=== PATIENT | female | born 1990 | race Caucasian/White ===

== ENCOUNTER 2018-08-10 13:53 | Emergency (ER) | payer MEDICARE, MEDICAID ==
[~2018-08-10] VITALS: Ht 157.5 cm; Wt 54.0 kg
[~2018-08-10 13:53] MED LIST: DIVA-76 PO; HYDR-3965 PO; OMEP40CA37 PO; ONDA4TAB12 PO
[2018-08-10 14:01] VITALS: BP 113/72
[2018-08-10] MEDS ORDERED: divalproex sodium 500mg tablet.DR PO ONE (14:15)
[2018-08-10] MEDS ORDERED: levetiracetam inj 1,500 MG in normal saline 100ml IV soln 85 ML IV ONE (14:15)
[2018-08-10] MEDS ORDERED: normal saline 1000ml 1,000 ML IV ONE (14:20)
== END 2018-08-10 15:23 | disposition home or self-care (01) ==
LOC: ER 13:54
DX: R56.9 Unspecified convulsions (principal); Z90.49 Acquired absence of other specified parts of digestive tract; Z79.899 Other long term (current) drug therapy
CPT/HCPCS: 96365; 99283; J1953; J7030

== ENCOUNTER 2022-02-16 10:00 | Emergency (ER) | payer MEDICARE, MEDICAID ==
[~2022-02-16] VITALS: Ht 152.4 cm; Wt 81.8 kg
[~2022-02-16 10:00] MED LIST changes: +OMEP40CA21 PO; -OMEP40CA37 PO
[2022-02-16] MEDS ORDERED: LIDO20SO24 PO (10:22)
[2022-02-16 10:30] VITALS: BP 122/91
== END 2022-02-16 10:50 | disposition home or self-care (01) ==
LOC: ER 10:01
DX: J02.9 Acute pharyngitis, unspecified (principal); R11.10 Vomiting, unspecified; Z90.49 Acquired absence of other specified parts of digestive tract; Z79.899 Other long term (current) drug therapy
CPT/HCPCS: 99282

== ENCOUNTER 2022-06-21 19:46 | Emergency (ER) | payer MEDICAID, MEDICARE ==
[~2022-06-21] VITALS: Ht 152.4 cm; Wt 81.8 kg
[~2022-06-21 19:46] MED LIST changes: +LIDO20SO24 PO
[2022-06-21 19:54] VITALS: BP 119/86
[2022-06-21 22:14] LABS: BASOPHILS # (AUTO) 0.2 X10'3 (0-0.2); BASOPHILS % (AUTO) 1.8 % (0-1); EOSINOPHILS # (AUTO) 0.1 X10'3 (0-0.9); EOSINOPHILS % (AUTO) 0.6 % (0-6); HEMATOCRIT 38.8 % (35.0-45.0); HEMOGLOBIN 13.5 g/dl (12.0-16.0); LYMPHOCYTES # (AUTO) 1.7 X10'3 (1.1-4.8); LYMPHOCYTES % (AUTO) 18.7 % (21-51); MEAN CORPUSCULAR HEMOGLOBIN 31.5 PG (27.0-31.0); MEAN CORPUSCULAR HGB CONC 34.8 g/dL (33.0-36.5); MEAN CORPUSCULAR VOLUME 90.5 FL (78-98); MEAN PLATELET VOLUME 10.1 FL (7.4-10.4); MONOCYTES # (AUTO) 0.7 X10'3 (0-0.9); MONOCYTES % (AUTO) 7.8 % (2-12); NEUTROPHILS # (AUTO) 6.5 X10'3 (1.8-7.7); NEUTROPHILS % (AUTO) 71.1 % (42-75); PLATELET COUNT 170 X10'3 (140-440); RED BLOOD COUNT 4.29 X10'6 (4.20-5.60); RED CELL DISTRIBUTION WIDTH 12.8 % (11.5-14.5); WHITE BLOOD COUNT 9.2 X10'3 (4.5-11.0)
[2022-06-21 22:23] LABS: ALANINE AMINOTRANSFERASE 14 U/L (12-78); ALBUMIN 3.6 G/DL (3.4-5.0); ALBUMIN/GLOBULIN RATIO 0.9 (1.1-1.5); ALKALINE PHOSPHATASE 67 IU/L (46-116); ANION GAP 8 (8-16); ASPARTATE AMINO TRANSFERASE 16 U/L (10-37); BILIRUBIN,TOTAL 0.3 MG/DL (0.1-1.0); BLOOD UREA NITROGEN 10 MG/DL (7-18); BUN/CREATININE RATIO 14.1 (6.6-38.0); CALCIUM 8.9 MG/DL (8.5-10.1); CHLORIDE 103 MMOL/L (99-107); CREATININE 0.71 MG/DL (0.40-0.90); GLUCOSE 83 MG/DL (70-104); POTASSIUM 3.7 MMOL/L (3.5-5.1); SODIUM 138 MMOL/L (135-145); TOTAL CARBON DIOXIDE 26.9 MMOL/L (24-32); TOTAL PROTEIN 7.4 G/DL (6.4-8.2); eGFR > 90 ML/MIN
[2022-06-21] MEDS ORDERED: CEPH500C82 PO (22:41)
[2022-06-21] MEDS ORDERED: SULF1TAB49 PO (22:41)
[2022-06-21] MEDS ORDERED: cephalexin 500mg capsule PO ONE (22:50)
[2022-06-21] MEDS ORDERED: sulfamethoxazole/trimethoprim DS (800/160mg) tablet PO ONE (22:50)
== END 2022-06-21 23:11 | disposition home or self-care (01) ==
LOC: ER 19:46
DX: I89.1 Lymphangitis (principal); M79.601 Pain in right arm; Z86.69 Personal history of other diseases of the nervous system and sense organs; Z90.89 Acquired absence of other organs; Z72.89 Other problems related to lifestyle; Z79.899 Other long term (current) drug therapy
CPT/HCPCS: 36415; 80053; 83605; 84145; 85025; 99283

== ENCOUNTER 2022-07-22 19:47 | Emergency (ER) | payer MEDICAID ==
[~2022-07-22] VITALS: Ht 152.4 cm; Wt 81.8 kg
[2022-07-22 19:57] VITALS: BP 120/80
[2022-07-22] MEDS ORDERED: ibuprofen tablet 400 MG TABLET PO ONE (20:10)
--- NOTE | 2022-07-22 20:17 | NUR ---
po med given
== END 2022-07-22 20:44 | disposition home or self-care (01) ==
LOC: ER 19:48
DX: S90.01XA Contusion of right ankle, initial encounter (principal); X50.1XXA Overexertion from prolonged static or awkward postures, initial encounter; Y93.89 Activity, other specified; Y92.89 Other specified places as the place of occurrence of the external cause; Y99.8 Other external cause status
CPT/HCPCS: 73610; 99283; L4360

== ENCOUNTER 2025-08-06 12:04 | Inpatient (IN) | payer MEDICAID ==
[~2025-08-06] VITALS: Ht 152.4 cm; Wt 91.7 kg
[~2025-08-06 12:04] MED LIST changes: +DIVA-134 PO; -DIVA-76 PO; +LIDO15SO9 PO; -LIDO20SO24 PO; +ONDA-243 PO; -ONDA4TAB12 PO
--- NOTE | 2025-08-06 12:35 | ELECTROCARDIOGRAPH REPORT ---
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 Nick Guadarrama Measurements Intervals [place] Rate: 109 P: 48 VT: 139 QRS: 84 QRSD: 88 T: 2 QT: 328 QTc: 442 Interpretive Statements Sinus tachycardia Borderline T abnormalities, anterior leads Electronically Signed On 08-09-2025 9:40:[address] Nick Guadarrama Please click the below link to view image of tracing.
--- NOTE | 2025-08-06 13:06 | RADIOLOGY REPORT ---
EXAM: DI CHEST,SINGLE VIEW HISTORY: COUGH, SOB TECHNIQUE: 1 view of the chest COMPARISON: None FINDINGS/IMPRESSION: LUNGS: Hazy alveolar opacity in the right lung base. Peribronchial thickening. Peripheral interstitial edema. Low lung volumes, which cause crowding of the bronchovascular markings. MEDIASTINUM: Unremarkable. BONES: No acute osseous abnormality. OTHER: None.
[2025-08-06] MEDS: ipratropium/albuterol 3ml nebule NEB ONE (13:14)
[2025-08-06 13:17] VITALS: PULSE 100; RESP 20; O2SAT 99
[2025-08-06 13:24] VITALS: PULSE 110; RESP 20; O2SAT 99
[2025-08-06 13:30] LABS: INFLUENZA TYPE A ANTIGEN RAPID NEGATIVE (Negative); INFLUENZA TYPE B ANTIGEN RAPID NEGATIVE (Negative)
[2025-08-06] MEDS: CefTRIAXone/D5W-Rocephin 1gm 50 ML IV ONE (13:31)
[2025-08-06 13:42] LABS: MEAN PLATELET VOLUME 10.0 FL (7.4-10.4); RED CELL DISTRIBUTION WIDTH 13.9 % (11.5-14.5)
--- NOTE | 2025-08-06 13:46 | Physician Documentation ---
History of Present Illness ~ Chief Complaint: Flu Symptoms Stated Complaint: PNEUMONIA Time Seen by MD: 12:50 OK to notify your PCP?: Yes HPI A 35 years old female who was brought in by his fiance for the acute shortness of breath and flu like symptoms since last Saturday with the PMH of seizures on Dapakote, s/p appendectomy. She was breathlessness and her fiance who is living with the patient endorsed most of the patient's history. Pt was getting high grade fever around 101'F with chills but not associated with the special time and patten of the occurrence. She started her cough with light intensity but progressed and worsen with the greenish sputum and denied for any blood in there. She was not diagnosed with the asthma or COPD before and dose not need to use oxygen and inhalers at home. She progressed her disease course with the whole body aching and GI symptoms with the Nausea, vomiting, and loose bowel movement. She denied for any sick contact before but her sisters got the similar symptoms after she started the symptoms. She also reported for the loss of She was never immunized with Covid vaccine and contracted with Covid infection before. She denied for any recent malignancy histories and its recent treatment, no recent long distance history. Medication Reconciliation Allergies: Coded Allergies: No Known Allergies (Unverified , 08/06/25) Scheduled Divalproex Sodium DR* (Depakote DR*), 1 TABLET PO BID, (Reported) Discontinued Medications Hydrocodone Bit/Acetaminophen 5/325 MG ([place] 5/325 MG), 1 TAB PO Q4H PRN for moderate pain 4-6 Discontinued Reason: patient no longer taking Lidocaine HCl (Lidocaine HCl Viscous), 5 ML PO Q2H Discontinued Reason: patient no longer taking ONDANSETRON ODT 4mg tablet (Ondansetron Odt), 1 TABLET PO Q6H PRN for nausea/vomiting Discontinued Reason: patient no longer taking Omeprazole (Prilosec), 1 CAP PO DAILY Discontinued Reason: patient no longer taking Past Medical History Past Medical History: Seizures Past Surgical History: appendectomy Patient History: (Cancer) Malignant carcinoid tumor MOTHER, Name: XAVIER, Age: 40, Not a twin, Onset:30's - 40 (BREAST) Alcohol Use: Occasionally Drug Use: none Lives In: Home Review of Systems Constitutional: Reports: fever Respiratory: Reports: cough, shortness of breath Physical Exam Vital Signs: Temperature: 99.6, Source: Oral, Heart Rate: 100, Respiratory Rate: 20, BP: 110/66, Pulse Oximetry: 99, Weight: 91.700 Oxygen Flow Rate: 0 Physical Exam General: Well alert, well oriented, not confused, not agitated, slightly in acute distress, well cooperated during the physical. HEENT: Conjunctive are pink, sclerae clear, no icterus, pupil is equal in both sides, reactive to light, no ear discharge, no pharyngeal erythema or an edema, mouth and lips are dry. Neck: Supple, no JVD, no lymphadenopathy and thyromegaly. Lungs:Equal air entry on both lungs, bilateral rhonchi especially on the right side Heart: S1-S2 regular sinus rhythm and, regular rate, no gallops, no rubs, no murmurs Abdomen: No visible peristalsis, Bowel sounds present on auscultation, soft, nontender, no guarding, no rigidity Extremities: No obvious deformities, no pitting edema bilaterally, capillary refill intact, able to wiggle toes both sides, peripheral pulsations are intact on both sides, no bilateral calf muscle tenderness CORONER FORENSIC TECHNICIAN: No focal neurological deficits, no motor and sensory weakness in all 4 extremities, could move all 4 extremities Musculoskeletal: No joint swelling, deformities, inflammations, and no scoliosis and back tenderness Skin: No active skin lesions and rashes Progress Results/Orders Results/Orders Orders - KAIDEN CELIS MD Chest,Single View (08/06/25 ) Page Hospitalist (08/06/25 16:01) Completed Orders - KAIDEN CELIS MD Electrocardiogram (08/06/25 ) Chest,Single View (08/06/25 ) Hcg Serum Ql (08/06/25 14:31) Normal Saline 1000ml (0.9% Sodium Chlori (08/06/25 15:45) Medications Received in ER Medications (Trade) Dose Ordered Sig/Calin Route PRN Reason Start Time Stop Time Status Last Admin Dose Admin (ipratrop/ albuterol 0.5-3(2.5) MG/3ml nebule) 3 ml STAT ONCE NEB 08/06/25 13:05 08/06/25 13:07 DC 08/06/25 13:14 3 ML Ceftriaxone Sodium 50 ml @ 100 mls/hr ONCE ONCE IV 08/06/25 13:20 08/06/25 13:49 DC 08/06/25 13:31 100 MLS/HR Azithromycin 250 ml @ 250 mls/hr Q24H IV 08/06/25 13:20 08/06/25 13:50 250 MLS/HR Sodium Chloride 1,000 ml @ 1,000 mls/hr ONCE ONCE IV 08/06/25 15:45 08/06/25 16:44 DC 08/06/25 15:51 1,000 MLS/HR Vital Signs 08/06/25 08/06/25 08/06/25 08/06/25 12:20 12:33 12:38 13:17 Temp 99.6 Pulse 114 107 100 Resp 20 22 20 B/P (MAP) 114/72 110/66 (81) Pulse Ox 94 95 99 O2 Delivery Room Air* O2 Flow Rate 0 0 0 FiO2 21 08/06/25 08/06/25 08/06/25 13:24 14:54 16:05 Pulse 110 106 101 Resp 20 21 17 B/P (MAP) 103/65 (78) 110/58 (75) Pulse Ox 99 96 96 O2 Delivery Room Air* O2 Flow Rate 0 0 2.0 FiO2 21 Laboratory Tests Test 08/06/25 12:46 08/06/25 13:20 08/06/25 14:19 Influenza Type A Antigen Negative Influenza Type B Antigen Negative SARS-CoV-2 Antigen (Rapid) Negative White Blood Count 5.0 Red Blood Count 4.29 Hemoglobin 12.2 Hematocrit 36.0 Mean Corpuscular Volume 83.8 Mean Corpuscular Hemoglobin 28.3 Mean Corpuscular Hemoglobin Concent 33.8 Red Cell Distribution Width 13.9 Platelet Count 101 L Mean Platelet Volume 10.0 Neutrophils (%) (Auto) 74.2 Lymphocytes (%) (Auto) 15.3 L Monocytes (%) (Auto) 9.9 Eosinophils (%) (Auto) 0.1 Basophils (%) (Auto) 0.5 Neutrophils # (Auto) 3.7 Lymphocytes # (Auto) 0.8 L Monocytes # (Auto) 0.5 Eosinophils # (Auto) 0.0 Basophils # (Auto) 0.0 CBC Comment D-Dimer 1.92 H D-Dimer Comment Sodium Level 133 L Potassium Level 3.2 L Chloride Level 98 L Carbon Dioxide Level 25.7 Anion Gap 9 Blood Urea Nitrogen 9 Creatinine 0.80 Estimated GFR/1.73 m2 83 BUN/Creatinine Ratio 11.3 Glucose Level 104 Calcium Level 8.1 L Total Bilirubin 0.3 Aspartate Amino Transf (AST/SGOT) 38 H Alanine Aminotransferase (ALT/SGPT) 26 Alkaline Phosphatase 52 Total Protein 7.8 Albumin 3.1 L Globulin 4.7 H Albumin/Globulin Ratio 0.7 L Procalcitonin 0.26 Chemistry Comments Human Chorionic Gonadotropin, Qual Negative EKG/XRAY/CT/US/VASC/MRI Chest X-Ray : Additional Comments I personally interpreted the x-ray, and it shows: Focal consolidation in the right lower lobe CT : Impression I personally interpreted the CT scan, and this shows no PE, she does have a right lower lobe pneumonia Consults/PCP Consults/PCP : Additional Comment Consult: I spoke to the internal medicine service, for admission in the hospital Medical Decision Making Additional information obtaine: family Findings A 35 years old female who was brought in by his fiance for the acute shortness of breath and flu like symptoms since last Saturday with the PMH of seizures on Dapakote, s/p appendectomy. # Acute hypoxic respiratory failure from Community acquired pneumonia (Bacteria Vs Viral) -CBC were WNL -CXR LUNGS: Hazy alveolar opacity in the right lung base. Peribronchial thickening. Peripheral interstitial edema. Low lung volumes, which cause crowding of the bronchovascular markings. -Ordered CTA Chest to rule out the possible PE although Low probability of Well/s criteria -Given one time dose of Duoneb in ER. -Initiated one time dose of IV Ceftriaxone and Zithromax for the pneumonia. Heart Score: 0 Differential Dx:Considerations: Include: pneumonia, pulmonary embolism, respiratory failure, upper resp. infection Addendum I supervised the resident physician during the care of this patient. I also independently interviewed and examined the patient, and reviewed her workup. She presents with flu-like symptoms, and exertional shortness of breath. Her workup is consistent with pneumonia. She was given IV antibiotics. A D-dimer was ordered initially, and this was elevated. CTA shows no PE but does confirm pneumonia. With ambulation she is mildly hypoxic with oxygen saturations in the high 80s. She will be admitted for further antibiotic treatment. Kaiden Celis MD Departure Impression: Primary Impression: Community acquired pneumonia Additional Impression: Hypoxic respiratory failure Referrals: NO PRIMARY CARE PROVIDER (PCP) Signature Scribe Signature: No scribe Attestation: Resident MD attestation: Patient was seen, examined and discussed with ER attending MD, Dr. Vimal DAVIS MD Internal Medicine Resident, PGY3 [facility] DAVIS, RES Aug 06, 2025 13:46 KAIDEN CELIS MD Aug 06, 2025 19:33
[2025-08-06] MEDS: azithromycin/NS 500mg/250ml 250 ML IV SCH (13:50)
[2025-08-06 13:57] LABS: CREATININE 0.80 MG/DL (0.40-0.90); TOTAL CARBON DIOXIDE 25.7 MMOL/L (24-32); eCRCL 72 ML/MIN; eGFR 83 ML/MIN
[2025-08-06 14:48] LABS: HCG SERUM QL NEGATIVE
--- NOTE | 2025-08-06 15:46 | RADIOLOGY REPORT ---
CLINICAL HISTORY: to rule out PE SOB, FEVER, ELEVATED D DIMER TECHNIQUE: CT angiogram of the chest was performed with and without intravenous contrast. 3D reconstructed MIP images were created and archived on the PACS system under concurrent radiologist supervision. This exam was performed according to our departmental dose optimization program. Up-to-date CT equipment and radiation dose reduction techniques are utilized as appropriate. CTDI 24 DLP 891 the focally COMPARISON: DI CHEST,SINGLE VIEW on DOS: 08/06/25 FINDINGS: Chest: There was [] opacification of the pulmonary artery tree. There is no filling defect to suggest acute pulmonary embolism. The thoracic aorta is normal in course and caliber. There are no significant atherosclerotic calcifications. The heart is normal in size. No pericardial effusion is seen. No enlarged mediastinal, hilar, or axillary lymph node is present. The central airways are patent. There is no bronchiectasis. There is mild linear left basilar atelectasis. There is a large right lower lobe consolidation. There is a trace right pleural effusion. There is no left pleural effusion Other: The visualized upper abdomen demonstrates multiple small calcified gallstones. No acute osseous abnormality is identified. IMPRESSION: No evidence for acute pulmonary embolism. No aortic dissection. Extensive right lower lobe pneumonia. Trace right pleural effusion. Cholelithiasis.
[2025-08-06] MEDS: normal saline 1000ml 1,000 ML IV ONE (15:51)
[2025-08-06] MEDS ORDERED: bisacodyl 10mg suppository rectal RC PRN (17:05)
[2025-08-06] MEDS ORDERED: potassium Cl 40MEQ/1/2NS 520ml 520 ML IV PRN (17:05)
[2025-08-06] MEDS ORDERED: HYDROcodone/acetaminophen 5mg/325mg tablet PO PRN (17:05)
[2025-08-06] MEDS ORDERED: magnesium hydroxide 30ml (MOM) UD suspension PO PRN (17:05)
[2025-08-06] MEDS ORDERED: potassium Cl 20 mEq SR tablet PO PRN (17:05)
[2025-08-06] MEDS ORDERED: magnesium sulf-water 2g/50mL 50 ML IV PRN (17:05)
[2025-08-06] MEDS ORDERED: magnesium Cl slow-release 64mg tablet PO PRN (17:05)
[2025-08-06] MEDS ORDERED: magnesium sulf-water 4G/100mL 100 ML IV PRN (17:05)
[2025-08-06] MEDS ORDERED: ondansetron/PF 4mg/2ml inj IV PRN (17:05)
[2025-08-06] MEDS ORDERED: albuterol 2.5 MG/3 ML nebule NEB PRN (17:10)
[2025-08-06 18:00] VITALS: BP 101/65; PULSE 94; RESP 20; TEMP 98.5; O2SAT 94
--- NOTE | 2025-08-06 19:59 | HISTORY AND PHYSICAL ---
History & Physical Providers to CC ~ History of Present Illness Reason for Admit\\Complaint: acute shortness of breath and flu like symptoms since last Saturday History of Present Illness Patient was evaluated in presence of nursing staff. Patient noticed mild phlegm associated with shortness of breaths. Denied any chest pain no other symptoms. Denied any old history of pneumonia in past. Patient is nonsmoker nonalcoholic does not use any recreational drugs. No other family members with similar symptoms but she has small kids in house. Patient is unable to recall if she has asthma or COPD in past. Physical team meeting on regular diet. As per ER record" She was breathlessness and her fiance who is living with the patient endorsed most of the patient's history. Pt was getting high grade fever around 101'F with chills but not associated with the special time and patten of the occurrence. She started her cough with light intensity but progressed and worsen with the greenish sputum and denied for any blood in there. She was not diagnosed with the asthma or COPD before and dose not need to use oxygen and inhalers at home. She progressed her disease course with the whole body aching and GI symptoms with the Nausea, vomiting, and loose bowel movement. She denied for any sick contact before but her sisters got the similar symptoms after she started the symptoms. She also reported for the loss of She was never immunized with Covid vaccine and contracted with Covid infection before. She denied for any recent malignancy histories and its recent treatment, no recent long distance history." Allergies: Coded Allergies: No Known Allergies (Unverified , 08/06/25) Home Medications Home Medications Active Reported Neil MASTERSON* (Divalproex Sodium) 500 Mg Tablet. 1 Tablet PO BID Past Medical History Past Medical History History of C diff colitis, Seizure. Past Surgical History Surgical History Comment Appendectomy. Family History Family History: (Cancer) Malignant carcinoid tumor MOTHER, Name: XAVIER, Age: 40, Not a twin, Onset:30's - 40 (BREAST) Past Social History Social History Comment She is a nonsmoker. She denies alcohol and drugs. ROS ROS All systems were reviewed and negative except as above. Exam Vitals: Vital Signs Date Time Temp Pulse Resp B/P (MAP) Pulse Ox O2 Delivery O2 Flow Rate FiO2 08/06/25 18:00 98.5 94 20 101/65 (77) 94 Room Air 0.0 08/06/25 13:24 21 General: General-patient not in any acute distress, alert awake , obese, age-appropriate HEENT-atraumatic normocephalic, neck supple without elevated JVD, no thyromegaly or carotid bruit. No lymphadenopathy bilaterally. Eyes-no icterus or pallor seen in eyes Chest-mildly coarse breath sounds bilaterally to auscultation breathing nonlabored no tachypnea, no wheezing, no crepitation, no crackles. Dry cough noticed Heart-S1-S2 normal, regular heart rate no murmur Abdomen bowel sounds positive on auscultation, soft nondistended nontender no guarding, no rigidity Skin no active skin rash Neurology-grossly intact, nonfocal alert awake oriented Extremity- no pedal edema able to move all 4 extremities Psychiatry - patient is not confused or agitated cooperated during physical examination Diagnostic Data Last Recorded Lab Results: 08/06/25 1320 08/06/25 1320 Diagnostic Data: Laboratory Tests Test 08/06/25 13:20 D-Dimer 1.92 MG/L FEU (0-0.50) H D-Dimer Comment Advance Care Planning Advanced Care plannin - 30 Minutes Additional Plan Patient is 35-year-old female with known history of seizures, history of C diff colitis in past. Patient is admitted for right lower lobe pneumonia. Patient is started on IV antibiotic therapy. Albuterol treatment ordered for shortness of breaths. Mild hypokalemia present we will do the replacement of potassium as per protocol. We will continue to monitor patient's labs and vitals closely . All labs, diagnostic workup, old records and ER records reviewed , Code status discussed with the patient patient wishes full code Time spent in discussing code status 16 minutes. Manual blood pressure 100 /70 when I checked it. We will do home medication reconciliation once updated in electronic by nursing staff or pharmacist. Further management depending on response to treatment and I will continue to follow patient in a.m. Date of Service: Aug 06, 2025 Billing Provider: SEAMUS SCHULTZ MD Common Visit Codes: [id number] INP/OBS CARE (HIGH) Secondary Visit Codes: [id number] CARE PLAN 30 MINUTES SEAMUS SCHULTZ MD Aug 06, 2025 19:59
[2025-08-06 20:00] VITALS: RESP 20; O2SAT 94
[2025-08-06] MEDS: heparin, porcine 5000 units/ml vial SQ SCH (20:00)
[2025-08-06] MEDS: K and/or MAG REPLACEMENT MC SCH (20:00)
[2025-08-06] MEDS: potassium Cl 20 mEq SR tablet PO PRN (20:53)
[2025-08-06] MEDS: divalproex sodium 500mg tablet.DR PO SCH (20:53)
[2025-08-06] MEDS: HALLS - SOOTHE MENTHOL 1.8 MG cough drop LOZENGE MM PRN (21:16)
[2025-08-06 22:00] VITALS: BP 106/72; PULSE 105; RESP 18; TEMP 99.5; O2SAT 100
[2025-08-07] VITALS (12 sets, daily range): BP systolic 99–105; BP diastolic 57–66; PULSE 92–113; RESP 16–18; TEMP 97.8–99.7; O2SAT 96–98
[2025-08-07 06:04] LABS: MEAN PLATELET VOLUME 9.8 FL (7.4-10.4); RED CELL DISTRIBUTION WIDTH 14.0 % (11.5-14.5)
[2025-08-07 06:29] LABS: CREATININE 0.59 MG/DL (0.40-0.90); TOTAL CARBON DIOXIDE 26.0 MMOL/L (24-32); eCRCL 97 ML/MIN; eGFR > 90 ML/MIN
[2025-08-07] MEDS ORDERED: azithromycin/NS 500mg/250ml 250 ML IV SCH (08:00)
[2025-08-07] MEDS: albuterol 2.5 MG/3 ML nebule NEB SCH (08:34)
[2025-08-07] MEDS: CefTRIAXone 2gm/D5W 50ml BAG 50 ML IV SCH (09:23)
[2025-08-07] MEDS ORDERED: guaiFENesin/DM 10ml UD oral syrup PO PRN (12:15)
--- NOTE | 2025-08-07 18:50 | PROGRESS NOTE ---
Daily Progress Note Providers to CC ~ Antibiotic Timeout Antibiotic Ordered?: Yes Subjective Patient is seen in her room she is feeling better. Saturating well on 1 L of oxygen Objective Vital Signs Date Time Temp Pulse Resp B/P (MAP) Pulse Ox O2 Delivery O2 Flow Rate FiO2 08/07/25 14:56 92 16 Room Air 0.0 08/07/25 14:49 98 24 08/07/25 11:30 97.8 101/59 (73) Result Diagram: 08/07/25 0455 08/07/25 0455 General-patient not in any acute distress, alert awake , obese, age-appropriate HEENT-atraumatic normocephalic, neck supple without elevated JVD, no thyromegaly or carotid bruit. No lymphadenopathy bilaterally. Eyes-no icterus or pallor seen in eyes Chest-mildly coarse breath sounds bilaterally to auscultation but improved since yesterday. breathing nonlabored no tachypnea, no wheezing, no crepitation, no crackles. Dry cough noticed Heart-S1-S2 normal, regular heart rate no murmur Abdomen bowel sounds positive on auscultation, soft nondistended nontender no guarding, no rigidity Skin no active skin rash, multiple tattoos present over body Neurology-grossly intact, nonfocal alert awake oriented Extremity- no pedal edema able to move all 4 extremities Psychiatry - patient is not confused or agitated cooperated during physical examination Coagulation Studies Laboratory Tests Test 08/06/25 13:20 D-Dimer 1.92 MG/L FEU (0-0.50) H D-Dimer Comment Problem\Assessment\Plan Patient is 35-year-old female with known history of seizures, history of C diff colitis in past. Patient is admitted for right lower lobe pneumonia. # right lower lobe pneumonia- on IV antibiotic therapy. Albuterol treatment ordered for shortness of breaths. Cough syrup ordered for dry cough # Mild hypokalemia - we will do the replacement of potassium as per protocol. # seizure disorder-continue on Depakote. # Pancytopenia likely secondary to side effects of Depakote # Code status discussed with the patient patient wishes full code We will continue to monitor patient's labs and vitals closely .home medication reconciliation updated in electronic records. Further management depending on response to treatment and I will continue to follow patient in a.m. Date of Service: Aug 07, 2025 Billing Provider: Yeimi Salazar CDS Common Visit Codes: [id number] INP/OBS CARE(HIGH) SEAMUS SCHULTZ MD Aug 07, 2025 18:50
[2025-08-08 02:14] VITALS: PULSE 98; RESP 16; O2SAT 92
[2025-08-08 02:19] VITALS: PULSE 85; RESP 18
[2025-08-08 05:31] LABS: MEAN PLATELET VOLUME 9.8 FL (7.4-10.4); RED CELL DISTRIBUTION WIDTH 14.4 % (11.5-14.5)
[2025-08-08 05:58] LABS: CREATININE 0.47 MG/DL (0.40-0.90); TOTAL CARBON DIOXIDE 25.1 MMOL/L (24-32); eCRCL 122 ML/MIN; eGFR > 90 ML/MIN
[2025-08-08 06:00] VITALS: BP 99/66; PULSE 92; RESP 18; TEMP 97.9; O2SAT 97
[2025-08-08 07:00] VITALS: RESP 18; O2SAT 97
[2025-08-08 08:12] VITALS: PULSE 97; RESP 17; O2SAT 95
[2025-08-08 08:17] VITALS: PULSE 98; RESP 17
[2025-08-08] MEDS ORDERED: GUAI1CAP96 PO (09:24)
[2025-08-08] MEDS ORDERED: LEVO-65 PO (09:24)
--- NOTE | 2025-08-08 17:28 | DISCHARGE SUMMARY ---
Discharge Summary Providers to CC ~ Discharge Summary Admission Diagnosis: Right lower lobe Pneumonia, right pleural effusion Hospital Course DATE OF ADMISSION: August 06, 2025 DATE OF DISCHARGE:August 08, 2025 CBC testing done on August 08, 2025 WBC 3.1 hemoglobin 9.5 hematocrit 28.3 platelet count 87. Serum chemistry done on August 08, 2025 sodium 137 potassium 3.6 creatinine 0.47 GFR greater than 90 normal liver enzymes. Procalcitonin 0.26 lactic acid 0.6. Blood culture showed no growth after one day CTA CHEST PEIMPRESSION: No evidence for acute pulmonary embolism. No aortic dissection. Extensive right lower lobe pneumonia. Trace right pleural effusion. Cholelithiasis. CHEST,SINGLE VIEWFINDINGS/IMPRESSION: LUNGS: Hazy alveolar opacity in the right lung base. Peribronchial thickening. Peripheral interstitial edema. Low lung volumes, which cause crowding of the bronchovascular markings. MEDIASTINUM: Unremarkable. BONES: No acute osseous abnormality. OTHER: None. Discharge Diagnosis\Comment: # right lower lobe pneumonia # Mild hypokalemia, resolved # seizure disorder # Pancytopenia likely secondary to side effects of Depakote Operations\Procedures: None Consultants: None Complications: None Condition on DC: Stable New Medications: Guaifenesin/Dextromethorphan (Robitussin Tauzi-Myrho-Wgys Dm) 200 Mg-10 Mg Capsule 1 CAP PO Q12H for 10 Days, #20 CAP 0 Refills Levofloxacin (Levofloxacin) 500 Mg Tablet 500 MG PO DAILY for 5 Days, #5 TAB Continued Medications: Divalproex Sodium DR* (Depakote DR*) 500 Mg Tablet.dr 1 TABLET PO BID Discharge Summary: Patient is 35-year-old female with known history of seizures, history of C diff colitis in past. Patient is admitted for right lower lobe pneumonia. # right lower lobe pneumonia- on IV antibiotic therapy. Albuterol treatment ordered for shortness of breaths. Cough syrup ordered for dry cough # Mild hypokalemia - we will do the replacement of potassium as per protocol. # seizure disorder-continue on Depakote. # Pancytopenia likely secondary to side effects of Depakote Patient is feeling better she has been afebrile and getting discharged home in stable condition. Patient is seen and examined on the day of discharge. All labs, diagnostic workup and discharge plan discussed with patient and family members in detail before her discharge. All questions and queries answered to the best of my professional medical knowledge. I heard patient's concerns and address appropriately. Patient was cleared by Physical therapy team for home discharge. guest service manager Vivian involved in patient's discharge plan. Discharge instructions provided to the patientFOLLOW-UP WITH PRIMARY CARE PHYSICIAN IN OUTPATIENT SETTING IN ONE WEEK AFTER HOSPITAL DISCHARGE. CONTINUE FOLLOW-UP WITH NEUROLOGY SPECIALIST FOR SEIZURE DISORDER. MONITOR CBC TESTING FOR PANCYTOPENIA. ACTIVITY TOLERATED General-patient not in any acute distress, alert awake , obese, age-appropriate HEENT-atraumatic normocephalic, neck supple without elevated JVD, no thyromegaly or carotid bruit. No lymphadenopathy bilaterally. Eyes-no icterus or pallor seen in eyes Chest-mildly coarse breath sounds bilaterally to auscultation but improved since yesterday. breathing nonlabored no tachypnea, no wheezing, no crepitation, no crackles. Dry cough noticed Heart-S1-S2 normal, regular heart rate no murmur Abdomen bowel sounds positive on auscultation, soft nondistended nontender no guarding, no rigidity Skin no active skin rash, multiple tattoos present over body Neurology-grossly intact, nonfocal alert awake oriented Extremity- no pedal edema able to move all 4 extremities Psychiatry - patient is not confused or agitated cooperated during physical examination *Problems/Diagnosis: (1) Community acquired pneumonia Status: Acute Total Time Spent on D/C: > 30 Minutes Date of Service: Aug 08, 2025 Billing Provider: SEAMUS SCHULTZ MD Common Visit Codes: 67538-QSY/OBS DISCH DAY >30min SEAMUS SCHULTZ MD Aug 08, 2025 17:28
== END 2025-08-08 11:02 | disposition home or self-care (01) | DRG 139 ==
LOC: ER 12:05 → ED HOLD 16:25 → EDBEDREQ 17:07 → SUR 3N 17:22
PROVIDERS: ADMIT Internal Medicine; ATTEND Internal Medicine
PROC: B32T1ZZ Computerized Tomography (CT Scan) of Left Pulmonary Artery using Low Osmolar Contrast (ICD-10-PCS; principal; 2025-08-06)
PROC: B3201ZZ Computerized Tomography (CT Scan) of Thoracic Aorta using Low Osmolar Contrast (ICD-10-PCS; 2025-08-06)
PROC: B32S1ZZ Computerized Tomography (CT Scan) of Right Pulmonary Artery using Low Osmolar Contrast (ICD-10-PCS; 2025-08-06)
DX: J18.9 Pneumonia, unspecified organism (principal); J96.91 Respiratory failure, unspecified with hypoxia; D61.811 Other drug-induced pancytopenia; G40.909 Epilepsy, unspecified, not intractable, without status epilepticus; E87.6 Hypokalemia; Z20.822 Contact with and (suspected) exposure to COVID-19; T42.6X5A Adverse effect of other antiepileptic and sedative-hypnotic drugs, initial encounter; Y92.89 Other specified places as the place of occurrence of the external cause; Z28.310 Unvaccinated for COVID-19; Z86.19 Personal history of other infectious and parasitic diseases; Z79.899 Other long term (current) drug therapy; Z90.49 Acquired absence of other specified parts of digestive tract
CPT/HCPCS: 36415; 71045; 71275; 80053; 83605; 84145; 84703; 85025; 85379; 87040; 87081; 87804; 87811; 93005; 94640; 94760; 99285; A4615; G0378; J0456; J0696; J7030; J7040; Q9967